=== PATIENT | female | born 1945 | race Caucasian/White ===

== ENCOUNTER 2021-01-12 09:58 | Emergency (ER) | payer MEDICARE | END 2021-01-12 11:22 | disposition home or self-care (01) | LOC: MADERS 09:58 | DX: H00.021 Hordeolum internum right upper eyelid (principal); I95.9 Hypotension, unspecified; M02.30 Reiter's disease, unspecified site; Z79.82 Long term (current) use of aspirin; Z79.899 Other long term (current) drug therapy | CPT/HCPCS: 99283 ==

== ENCOUNTER 2021-02-06 09:51 | Outpatient (CLI) | payer MEDICARE | END 2021-02-06 09:52 | disposition home or self-care (01) | LOC: MADRAD 09:51 | PROVIDERS: ATTEND Family Medicine | DX: M79.605 Pain in left leg (principal) ==